=== PATIENT | female | born 1945 | race African-American/Black ===

== ENCOUNTER 2017-10-01 14:54 | Emergency (ER) | payer MEDICARE, OTHER ==
[~2017-10-01] VITALS: Ht 162.6 cm; Wt 99.8 kg
[2017-10-01 15:10] VITALS: BP 161/74
[2017-10-01] MEDS ORDERED: Albuterol/Ipratropium 3ml neb HHN ONE ×2 (15:15→18:45)
[2017-10-01] MEDS ORDERED: FORTAMET1000 MG PO (15:24)
[2017-10-01] MEDS ORDERED: MONTELUKAST SOD10 MG ORAL (15:24)
[2017-10-01] MEDS ORDERED: GLIPIZIDE10 MG PO (15:24)
[2017-10-01] MEDS ORDERED: ENALAPRIL MALEA20 MG ORAL (15:24)
[2017-10-01] MEDS ORDERED: VENTOLIN HFA18 GM INH (15:24)
[2017-10-01] MEDS ORDERED: DYMISTA NASAL S23 GM NS (15:24)
[2017-10-01] MEDS ORDERED: OMEPRAZOLE20 M2 ORAL (15:24)
[2017-10-01 16:11] LABS: BASOPHILS % (AUTO) 1.3 % (0.0-2.0); EOSINOPHILS % (AUTO) 5.6 % (0.0-3.0); LYMPHOCYTES % (AUTO) 42.1 % (20.0-45.0); MEAN CORPUSCULAR HEMOGLOBIN 29.6 PG (27.0-31.0); MEAN CORPUSCULAR VOLUME 93 FL (80-99); MEAN PLATELET VOLUME 7.8 FL (6.5-10.1); MONOCYTES % (AUTO) 6.5 % (1.0-10.0); NEUTROPHILS % (AUTO) 44.5 % (45.0-75.0); PLATELET COUNT 279 K/UL (150-450); RED BLOOD COUNT 4.47 M/UL (4.20-5.40); RED CELL DISTRIBUTION WIDTH 12.8 % (11.6-14.8); WHITE BLOOD COUNT 9.1 K/UL (4.8-10.8)
[2017-10-01 16:19] VITALS: BP 131/74
[2017-10-01 16:34] LABS: ANION GAP 10 mmol/L (5-15); CALCIUM 9.7 MG/DL (8.5-10.1); CARBON DIOXIDE 28 MMOL/L (21-32); CHLORIDE 106 MMOL/L (98-107); CREATININE 0.8 MG/DL (0.55-1.30); GLOMERULAR FILTRATION RATE > 60 mL/min (>60); POTASSIUM 3.8 MMOL/L (3.5-5.1); SODIUM 144 MMOL/L (136-145)
[2017-10-01 16:54] LABS: ALANINE AMINOTRANSFERASE 32 U/L (12-78); ASPARTATE AMINO TRANSFERASE 22 U/L (15-37); CKMB 1.9 NG/ML (0.0-3.6); TOTAL PROTEIN 7.8 G/DL (6.4-8.2)
[2017-10-01 18:07] VITALS: BP 155/106
--- NOTE | 2017-10-01 19:17 | Diagnostic Imaging Report ---
Indication: Shortness of breath Technique: XRAY CHEST 1 V Comparison: None Findings: Heart size and mediastinal contours are within normal limits given technique. There is no focal consolidation, pneumothorax or pleural effusion. Osseous structures demonstrate no acute abnormality. Impression: No radiographic evidence of acute cardiopulmonary disease.
[2017-10-01] MEDS ORDERED: PREDNISONE20 MG ORAL (20:10)
[2017-10-01 20:30] VITALS: BP 142/89
--- NOTE | 2017-10-01 23:22 | Emergency Room Report ---
History of Present Illness General Chief Complaint: Dyspnea/Respdistress Source: Patient Present Illness HPI Patient is 71-year-old female brought in by EMS after increased difficulty breathing. Patient gradual onset of symptoms. She reportedly had increased to breathing for the past 3 days. She had prior history of asthma. She denies prior history of congestive heart failure or cardiac disease. 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 Allergies: Coded Allergies: Cultivated Oat Pollen (Verified Allergy, Unknown, 10/01/17) Dust (Verified Allergy, Unknown, 10/01/17) Patient History Past Medical History: see triage record, asthma Reviewed Nursing Documentation: PMH: Agreed, PSxH: Agreed Nursing Documentation-PMH Hx Hypertension: Yes Hx Pacemaker: No Hx Asthma: Yes Hx Diabetes: Yes Hx Cancer: No Hx Gastrointestinal Problems: No Hx Dialysis: No History Of Psychiatric Problem: No Hx Neurological Problems: Yes - Glaucoma Hx Cerebrovascular Accident: No Review of Systems All Other Systems: negative except mentioned in HPI Physical Exam Vital Signs Date Time Temp Pulse Resp B/P (MAP) Pulse Ox O2 Delivery O2 Flow Rate FiO2 10/01/17 15:01 98.4 103 18 147/77 99 Room Air 10/01/17 15:40 21 Sp02 EP Interpretation: reviewed, normal General Appearance: normal inspection, well appearing, alert, GCS 15, mild distress Head: atraumatic ENT: normal ENT inspection, hearing grossly normal, normal voice Neck: normal inspection, full range of motion, supple, no bony tend Respiratory: normal inspection, no respiratory distress, no retraction, wheezing Cardiovascular #1: regular rate, rhythm, no edema Gastrointestinal: normal inspection, normal bowel sounds, non tender, soft, no guarding, no hernia Genitourinary: no CVA tenderness Musculoskeletal: normal inspection, back normal, normal range of motion Neurologic: normal inspection, alert, oriented x3, responsive, [employer] III-XII nml as tested, speech normal Psychiatric: normal inspection, judgement/insight normal, mood/affect normal Skin: normal inspection, normal color, no rash Medical Decision Making Diagnostic Impression: Primary Impression: Asthma exacerbation ER Course Patient presented for shortness of breath. Differential included but was not limited to anemia, pneumonia, pneumothorax, myocardial infarction, pericardial effusion, congestive heart failure, acidosis. Because of complexity of patient 's case laboratory testing and imaging studies were ordered. I laboratory testing showed adequate hemoglobin a normal white blood count. A chest x-ray one view interpreted by me showed normal cardiac size without evident infiltrate Patient is given nebulized albuterol with improvement. Patient was given steroids. Repeat lung exam showed improved breath sounds. The patient is advised to follow up with Primary care doctor in 1-2 days. Patient is advised to return if any worsening condition or if any changes in status that are concerning. the patient was given prescription for oral steroids and albuterol Labs Test 10/01/17 15:47 White Blood Count 9.1 K/UL (4.8-10.8) Red Blood Count 4.47 M/UL (4.20-5.40) Hemoglobin 13.2 G/DL (12.0-16.0) Hematocrit 41.4 % (37.0-47.0) Mean Corpuscular Volume 93 FL (80-99) Mean Corpuscular Hemoglobin 29.6 PG (27.0-31.0) Mean Corpuscular Hemoglobin Concent 32.0 G/DL (32.0-36.0) Red Cell Distribution Width 12.8 % (11.6-14.8) Platelet Count 279 K/UL (150-450) Mean Platelet Volume 7.8 FL (6.5-10.1) Neutrophils (%) (Auto) 44.5 % (45.0-75.0) Lymphocytes (%) (Auto) 42.1 % (20.0-45.0) Monocytes (%) (Auto) 6.5 % (1.0-10.0) Eosinophils (%) (Auto) 5.6 % (0.0-3.0) Basophils (%) (Auto) 1.3 % (0.0-2.0) Sodium Level 144 MMOL/L (136-145) Potassium Level 3.8 MMOL/L (3.5-5.1) Chloride Level 106 MMOL/L (98-107) Carbon Dioxide Level 28 MMOL/L (21-32) Anion Gap 10 mmol/L (5-15) Blood Urea Nitrogen 8 mg/dL (7-18) Creatinine 0.8 MG/DL (0.55-1.30) Estimat Glomerular Filtration Rate > 60 mL/min (>60) Glucose Level 123 MG/DL (74-106) Calcium Level 9.7 MG/DL (8.5-10.1) Total Bilirubin 0.3 MG/DL (0.2-1.0) Aspartate Amino Transf (AST/SGOT) 22 U/L (15-37) Alanine Aminotransferase (ALT/SGPT) 32 U/L (12-78) Alkaline Phosphatase 50 U/L (46-116) Total Creatine Kinase 78 U/L (26-308) Creatine Kinase MB 1.9 NG/ML (0.0-3.6) Creatine Kinase MB Relative Index 2.4 Troponin I 0.000 ng/mL (0.000-0.056) Pro-B-Type Natriuretic Peptide 46 pg/mL (0-125) Total Protein 7.8 G/DL (6.4-8.2) Albumin 3.9 G/DL (3.4-5.0) Globulin 3.9 g/dL Albumin/Globulin Ratio 1.0 (1.0-2.7) EKG Diagnostic Results Rate: normal Rhythm: NSR ST Segments: no acute changes Last Vital Signs Date Time Temp Pulse Resp B/P (MAP) Pulse Ox O2 Delivery O2 Flow Rate FiO2 10/01/17 18:59 91 18 97 Room Air 21 10/01/17 18:07 98.4 155/106 Status: improved Disposition: HOME, SELF-CARE Condition: Stable Scripts Prednisone* (PREDNISONE*) 20 Mg Tablet 40 MG ORAL DAILY, #10 TAB Prov: Dax Sunshine 10/01/17 Patient Instructions: Asthma, Adult Dax Sunshine Oct 01, 2017 23:22
--- NOTE | 2017-10-07 11:04 | Cardiology Report ---
APPROVED REPORT EKG Measurement Heart [id number] Normal sinus rhythm Normal ECG
== END 2017-10-01 20:30 | disposition home or self-care (01) ==
LOC: EMR 17:01
DX: J45.901 Unspecified asthma with (acute) exacerbation (principal); E11.9 Type 2 diabetes mellitus without complications; I10 Essential (primary) hypertension
CPT/HCPCS: 36415; 71010; 80053; 82550; 82553; 83880; 84484; 85025; 93005; 94640; 94664; 96374; 99284; J1940; J7620